=== PATIENT | female | born 1990 ===

== ENCOUNTER 2017-10-18 15:00 | Day surgery (SDC) | payer OTHER ==
[2017-10-18] MEDS ORDERED: ZITHROMAX500 MG PO (20:24)
[2017-10-18] MEDS ORDERED: PERCOCET 5-3251 EACH PO (20:24)
== END 2017-10-18 22:30 | disposition home or self-care (01) ==
LOC: CIR.AMB 15:00 → EDSTATUS 18:04 → CIR.AMB 18:05
DX: O02.1 Missed abortion (principal); Z3A.09 9 weeks gestation of pregnancy

== ENCOUNTER 2019-11-08 04:57 | Inpatient (IN) | payer OTHER ==
[~2019-11-08] VITALS: Ht 162.6 cm; Wt 3.2 kg
[~2019-11-08 04:57] MED LIST: PERCOCET 5-3251 EACH PO; ZITHROMAX500 MG PO
== END 2019-11-10 15:25 | disposition home or self-care (01) | DRG 786 ==
LOC: LDR 04:57 → OB/GYN 04:57 → O/R 04:57 → OB/GYN 10:35
PROVIDERS: ADMIT Specialist; ATTEND Specialist
PROC: 4A1HXCZ Monitoring of Products of Conception, Cardiac Rate, External Approach (ICD-10-PCS; 2019-11-08)
PROC: 10D00Z1 Extraction of Products of Conception, Low, Open Approach (ICD-10-PCS; principal; 2019-11-08 07:30)
DX: O64.8XX0 Obstructed labor due to other malposition and malpresentation, not applicable or unspecified (principal); O60.14X0 Preterm labor third trimester with preterm delivery third trimester, not applicable or unspecified; Z3A.36 36 weeks gestation of pregnancy; Z37.0 Single live birth

== ENCOUNTER 2022-09-23 05:24 | Inpatient (IN) | payer OTHER ==
[~2022-09-23] VITALS: Ht 162.6 cm; Wt 3.2 kg
[2022-09-23] MEDS ORDERED: PRENATAL TABLE1 EAC4 PO (06:21)
[2022-09-23] MEDS ORDERED: IRON325 MG PO (06:22)
[2022-09-23] MEDS ORDERED: TERBUTALINE SULF5 MG PO (06:22)
== END 2022-09-25 13:39 | disposition home or self-care (01) | DRG 785 ==
LOC: LDR 05:24 → OB/GYN 08:59
PROVIDERS: ADMIT Specialist; ATTEND Specialist
PROC: 0UB70ZZ Excision of Bilateral Fallopian Tubes, Open Approach (ICD-10-PCS; 2022-09-23)
PROC: 4A1HXCZ Monitoring of Products of Conception, Cardiac Rate, External Approach (ICD-10-PCS; 2022-09-23)
PROC: 10D00Z1 Extraction of Products of Conception, Low, Open Approach (ICD-10-PCS; principal; 2022-09-23 07:45)
DX: O34.211 Maternal care for low transverse scar from previous cesarean delivery (principal); Z3A.38 38 weeks gestation of pregnancy; Z30.2 Encounter for sterilization; Z37.0 Single live birth; Z20.822 Contact with and (suspected) exposure to COVID-19

== ENCOUNTER 2024-05-20 05:40 | Day surgery (SDC) | payer OTHER ==
[~2024-05-20 05:40] MED LIST changes: +CABERGOLINE0.5 MG PO; +IRON325 MG PO; +PRENATAL TABLE1 EAC4 PO; +SPRINTEC 28 DA1 EACH PO; +TERBUTALINE SULF5 MG PO
[2024-05-20] MEDS ORDERED: POVIDONE-IODINE 118 ML BOTT TOP ONE (07:29)
[2024-05-20] MEDS ORDERED: BUPIVACAINE HCL/MPF 0.5% 30ML VIAL ONE (07:36)
[2024-05-20] MEDS ORDERED: SUGAMMADEX SODIUM 200 MG/2 ML VIAL IV ONE (08:39)
[2024-05-20] MEDS ORDERED: TYLENOL ARTHRI650 MG PO (08:59)
[2024-05-20] MEDS ORDERED: MORPHINE SULFATE 4 MG/ML VIAL IV ONE (09:00)
== END 2024-05-20 10:50 | disposition home or self-care (01) ==
LOC: CIR.AMB 05:40
PROVIDERS: ATTEND Specialist
DX: R10.2 Pelvic and perineal pain (principal); Z88.6 Allergy status to analgesic agent